=== PATIENT | female | born 1940 | race African-American/Black ===

== ENCOUNTER 2016-10-03 13:32 | Observation (INO) | payer OTHER ==
--- NOTE | ~2016-10-03 | HP ---
History And Physical [place] [id number] [facility] [place]. [address] NAME: JAQUAN SIMS : 44 STATUS : ADM Deshawn PAT#: [id number] AGE: 75 ADM/REG DATE : 10/03/16 MR#: [id number] REPORT SERV DATE: 10/04/16 DICTATED BY: ENE BAEZ DATE: 10/04/16 REPORT STATUS : Draft TRANSCRIBED BY: COLTEN DATE: 10/04/16 DATE OF ADMISSION: 10/03/2016 CHIEF COMPLAINT: Chest tightness. HISTORY OF PRESENT ILLNESS: This is a very pleasant 75-year-old black female with no known history of CAD, states that over the last three days, she has had episodic left shoulder and arm pain, and occasionally left chest pain. She describes the chest pain as a tightness that reoccurred yesterday on 10/03/2016, which was concerning for her and her family. She rated the chest pain a 7/10 at its most intense. At the time of interview in the [facility], she is pain free. The episode lasted approximately 10 minutes in duration and occurred while she was sitting at her computer. She reports this as some belching, which is unchanged, but denies any shortness of breath, nausea, diaphoresis, or dizziness. No exertional component as described. There is no aggravating symptoms, and it is not reproducible on exam this morning. The patient reports a personal history of a TIA in 2011 with no deficit. Denies history of NV, DVT, or pulmonary embolus. The patient denies any recent fever or chills. Describes rare palpitations. Consumes a 16 ounce glass of tea per day. No syncopal episodes. Denies PND or orthopnea. PAST MEDICAL HISTORY: 1. AODM. 2. Hypertension. 3. COPD. 4. Chronic bronchitis. 5. Osteoarthritis. 6. History of right breast cancer, treated with chemotherapy and mastectomy. 7. History of TIA, approximately 2011. No deficit. PAST SURGICAL HISTORY: 1. Hysterectomy. 2. Right mastectomy. 3. Bilateral rotator cuff repair. SOCIAL HISTORY: She is single with four children. She is retired. Does not have an exercise routine. Denies tobacco, alcohol, or illicits. FAMILY HISTORY: Mother with a history of hypertension. Father of suicide. No embolic events reported in the first-degree relatives. REVIEW OF SYSTEMS: A 14-point review of systems was performed, significant for HPI including home blood sugars of approximately 120. Otherwise complete review of systems was obtained and negative. ALLERGIES: ALLERGY TO ASPIRIN, ANAPHYLAXIS; ERYTHROMYCIN, RASH; PENICILLIN, UNKNOWN; LYRICA, BLINDNESS AND BLURRED VISION. History And Physical [place] [address] [place]. [address] NAME: JAQUAN SIMS : 44 STATUS : ADM Deshawn PAT#: [id number] AGE: 75 ADM/REG DATE : 10/03/16 MR#: [id number] REPORT SERV DATE: 10/04/16 DICTATED BY: ENE BAEZ DATE: 10/04/16 REPORT STATUS : Draft TRANSCRIBED BY: COLTEN DATE: 10/04/16 MEDICATIONS: Home medicines: Allopurinol 100 mg daily, diltiazem ER 360 daily, gabapentin 100 mg three times daily, Tradjenta 5 mg daily, lisinopril 20 mg daily p.r.n. systolic greater than 150, metformin 500 mg daily, and Percocet 10/325 every 6 hours p.r.n. PHYSICAL EXAMINATION: BLOOD PRESSURE: 150/74, PULSE: 67, RESPIRATORY RATE: 18, TEMPERATURE: 98, O2 saturation 97% on room air. HEIGHT: 5 feet 8 inches, WEIGHT: 212 pounds. BMI of 32.2. GENERAL: Cooperative, in no apparent distress. HEENT: Pupils 2 mm, sclera nonicteric. Nares patent. Moist mucous membranes. No xanthelasma. NECK: Trachea midline, no thyromegaly. No JVD. No bruits. LYMPH: No cervical lymphadenopathy. No supraclavicular lymphadenopathy. RESPIRATORY: Unlabored respirations. Breath sounds clear bilaterally to posterior auscultation. No wheezes or rhonchi. CARDIOVASCULAR: Regular rate. No murmur, rub or gallop appreciated. EXTREMITIES: Without edema. Pulses 2+ bilaterally. ABDOMEN: Obese and there was no organomegaly appreciated. SKIN: Warm, dry extremities. No pallor, or cyanosis. PSYCHIATRIC: Appropriate affect. Alert, oriented x3. LABORATORY DATA: Troponin is less than 0.02, twice. TSH 2.950. Potassium 4.2, BUN 14, creatinine 1.11, glucose 128, and magnesium 2.2. BNP 7.2. WBC of 7.0, hemoglobin 13.2, hematocrit 40.4, and platelet count 239,000. EKG; sinus rhythm, LAD, LVH. Echo in 2007: EF of 55%. ASSESSMENT AND PLAN: 1. Atypical chest pain in a patient with multiple risk factors. The patient has been observed in the CPOU overnight to rule out myocardial infarction with serial enzymes and serial EKGs, and held n.p.o. 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 The patient will be discharged home if low risk, no ischemia. If anything suggestive of ischemia, Cardiology referral will be initiated. Otherwise, the patient will be asked to follow up with her PCP in one to two weeks with all studies being sent to that office. 2. Adult-onset diabetes mellitus. Hold metformin level 1 sliding scale correction. 3. Hypertension. Hold calcium channel troy. Monitor blood pressure and continue home medications. CASEY/COLTEN Ene Baez, MSN, [employer]-BC / [phone] History And Physical [address] [address] NAME: JAQUAN SIMS : 44 STATUS : ADM Deshawn PAT#: [id number] AGE: 75 ADM/REG DATE : 10/03/16 MR#: [id number] REPORT SERV DATE: 10/04/16 DICTATED BY: ENE BAEZ DATE: 10/04/16 REPORT STATUS : Draft TRANSCRIBED BY: MODL DATE: 10/04/16 CC: Ene Baez, MSN, [employer] Edgardo Dailey M.D.
[2016-10-03 12:58] LABS: BASOPHILS 0.3 %; BASOPHILS ABSOLUTE 0.02 10/3/uL (0.0-0.16); EOSINOPHILS 1.2 %; EOSINOPHILS ABSOLUTE 0.08 10/3/uL (0.0-0.53); HEMOGLOBIN 13.2 g/dL (12.0-16.0); LYMPHOCYTES 35.3 %; LYMPHOCYTES ABSOLUTE 2.45 10/3/uL (0.67-4.30); MEAN CORPUS HGB CONC 32.7 g/dL (32.0-36.0); MEAN CORPUSCULAR HEMOGLOB 27.5 pg (26.0-34.0); MEAN CORPUSCULAR VOLUME 84.2 fL (80-100); MEAN PLATELET VOLUME 10.6 fL (9.2-13.0); MONOCYTES 5.3 %; MONOCYTES ABSOLUTE 0.37 10/3/uL (0.21-1.20); NEUTROPHILS 57.9 %; NEUTROPHILS ABSOLUTE 4.03 10/3/uL (2.02-8.40); PLATELET COUNT 239 10/3/uL (150-400); RBC DISTRIBUTION WIDTH 15.9 % (12.0-16.0)
[2016-10-03 12:59] LABS: ER CBC TAT 0 Hrs 09 Mins; HEMATOCRIT 40.4 % (36.0-48.0); MANUAL DIFF NO %
[2016-10-03 13:05] LABS: PARTIAL THROMBO TIME 30.9 SEC (22.5-37.2)
[2016-10-03 13:06] LABS: PROTIME (NOT ORD) 13.3 SEC (12.0-14.5)
[2016-10-03 13:20] LABS: CALCIUM, SERUM 8.9 MG/DL (8.5-10.4); CHEST PAIN PROFILE TAT 0 Hrs 30 Mins; CHLORIDE, SERUM 105 MMOL/L (96-112); CO2 (CARBON DIOXIDE) 29 MMOL/L (24-34); CREATININE 1.11 MG/DL (0.55-1.02); GFR AFRICAN AMERICAN 57 ML/MIN (>=60); GFR NON AFRICAN AMERICAN 49 ML/MIN (>=60); POTASSIUM, SERUM 4.2 MMOL/L (3.5-5.3); SODIUM, SERUM 141 MMOL/L (135-148); TROPONIN I <0.02 NG/ML (<0.05)
[2016-10-03 13:21] LABS: BUN (BLOOD UREA NITROGEN) 14 MG/DL (6-23); GLUCOSE, SERUM 128 MG/DL (60-99)
[~2016-10-03 13:32] MED LIST: AMARYL4 PO; CARDCD360 PO; CARDIZEM LA360 MG PO; CELEBREX2 PO; CINNAMONPO PO; GLUCPH PO; MAXIMUM D3 PO; MULTIVITAMI1 PO; PRAV10 PO; PRIN20 PO; STERAPRED DS10 MG; SYMBICORT 160/41 INH INH; TRADJENTA5 MG PO; TUMERIC PO; ZESTORETIC PO
[2016-10-03] MEDS ORDERED: PERCOCET 10/3251 TAB PO (14:45)
[2016-10-03] MEDS ORDERED: Z100 PO (14:45)
[2016-10-03] MEDS ORDERED: PRIN20 PO (14:45)
[2016-10-03] MEDS ORDERED: TAZTIA X3 PO (14:47)
[2016-10-03] MEDS ORDERED: TRADJENTA5 MG PO (14:51)
[2016-10-03] MEDS ORDERED: GLUCPH PO (14:51)
[2016-10-03] MEDS ORDERED: NEUR100 PO (14:52)
== END 2016-10-04 16:37 | disposition home or self-care (01) ==
LOC: ER 13:32 → CDU1 14:13 → CDU2 14:24
PROVIDERS: Hospitalist
DX: R07.89 Other chest pain (principal); E11.8 Type 2 diabetes mellitus with unspecified complications; F32.9 Major depressive disorder, single episode, unspecified; I10 Essential (primary) hypertension; J44.9 Chronic obstructive pulmonary disease, unspecified; M19.90 Unspecified osteoarthritis, unspecified site; Z23 Encounter for immunization; Z86.73 Personal history of transient ischemic attack (TIA), and cerebral infarction without residual deficits; Z85.3 Personal history of malignant neoplasm of breast; Z90.710 Acquired absence of both cervix and uterus; Z98.890 Other specified postprocedural states; Z82.49 Family history of ischemic heart disease and other diseases of the circulatory system; Z88.8 Allergy status to other drugs, medicaments and biological substances; Z88.1 Allergy status to other antibiotic agents; Z88.0 Allergy status to penicillin; Z79.899 Other long term (current) drug therapy
CPT/HCPCS: 71020; 78492; 80048; 82962; 83735; 83880; 84443; 84484; 85025; 85610; 85730; 90662; 93005; 93017; 99285; A9270-GY; A9555; G0008; G0378; J2785